=== PATIENT | female | born 1950 | race Caucasian/White ===

== ENCOUNTER 2017-01-27 00:16 | Inpatient (IN) | payer MEDICARE ==
[2017-01-27] MEDS ORDERED: Lasix 40 MG/4 ML ONE (00:23)
[2017-01-27] MEDS ORDERED: BABY ASPIRIN 81 MG CHEW PO ONE (00:25)
[2017-01-27] MEDS ORDERED: Lasix 40 MG/4 ML IV ONE (00:25)
[2017-01-27] MEDS ORDERED: ROCEPHIN 1 Gm-D5w 50 ml Bag** 1 G/50 ML IVPB IV STA (00:31)
[2017-01-27] MEDS ORDERED: Zithromax 500 MG/ 250 ML NaCl Premix 500 MG/250 ML IVPB IV STA (00:31)
[2017-01-27] MEDS ORDERED: Xopenex 1.25 MG/0.5 ML UD NEBULE IH ONE ×3 (00:31→01:06)
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
[2017-01-27] MEDS ORDERED: Sodium Chloride 0.9% 250 ML 250 ML IV ONE (00:35)
[2017-01-27 00:37] LABS: A-aADO2 582; ARTERIAL BLD GAS O2 SATURATION 96.6 % (95-100); ARTERIAL BLOOD GAS BASE EXCESS 3.9 (-2.0-2.0); ARTERIAL BLOOD GAS FIO2 100 %; ARTERIAL BLOOD GAS PO2 79 mmHg (75-100); ARTERIAL BLOOD GAS pH 7.44 (7.35-7.45)
[2017-01-27 00:38] LABS: ALLEN TEST OK? YES
[2017-01-27 00:40] LABS: BASOPHIL % 0.3 % (0.0-0.4); Eosinophil % 0.9 % (0.00-5.0); Granulocytes % 77.6 % (36.0-66.0); Lymphocytes % 12.4 % (24.0-44.0); Mean Cell Volume 93.4 fl (78-100); Mean Platelet Volume 9.2 fl (6-9.5); Monocytes % 8.8 % (0.0-12.0); Platelet Count 225 K/mm3 (150-450); Red Blood Count 3.66 M/mm3 (4.1-5.4); Red Cell Distribution Width 14.6 % (11.5-14.0); White Blood Count 9.6 K/mm3 (4.0-10.5)
[2017-01-27] MEDS: Sodium Chloride 0.9% 1000 ML 1,000 ML IV SCH ×2 (00:40→03:53)
[2017-01-27] MEDS ORDERED: BABY ASPIRIN 81 MG CHEW ONE (00:42)
[2017-01-27] MEDS ORDERED: ROCEPHIN 1 Gm-D5w 50 ml Bag** 1 G/50 ML IVPB IV ONE (00:42)
[2017-01-27] MEDS ORDERED: NITRO-BID 2% UD PACKETS TOP ONE (00:44)
[2017-01-27] MEDS ORDERED: NITRO-BID 2% UD PACKETS ONE (00:45)
[2017-01-27 00:52] LABS: INR 1.14 (0.8-3.0); PROTIME 12.9 SECONDS (9.95-12.35)
[2017-01-27 00:54] LABS: PTT 21.2 SECONDS (25.3-37.0)
[2017-01-27] MEDS ORDERED: Sodium Chloride 3 ML UD NEBULES IH ONE ×2 (00:58→01:06)
[2017-01-27 01:06] LABS: ALBUMIN 3.7 g/dL (3.4-5.0); ALKALINE PHOSPHATASE 109 U/L (46-116); ANION GAP 13.8 MEQ/L (5-15); BLOOD UREA NITROGEN 27 mg/dL (9-20); CHLORIDE 103 mEq/L (98-107); Glucose 190 MG/DL (70-110); LIPASE 71 U/L (73-393); MAGNESIUM 1.9 mg/dL (1.8-2.4); Potassium 3.8 mEq/L (3.5-5.1); SGOT/AST 18 U/L (15-37); SGPT/ALT 14 U/L (12-78); SODIUM 140 mEq/L (136-145); Total Protein 8.1 gm/dL (6.4-8.2)
[2017-01-27 01:10] LABS: ADD URINE CULTURE? NO (NO); Bilirubin NEGATIVE (NEGATIVE); Blood NEGATIVE Ery/ul (0-5); COMPLETE URINE MICROSCOPIC? NO; Collection Type CATH; Glucose NEGATIVE (NEGATIVE); Leukocyte Esterase NEGATIVE (NEGATIVE)
[2017-01-27] MEDS ORDERED: Zithromax 500 MG/ 250 ML NaCl Premix 500 MG/250 ML IVPB IV ONE (01:19)
[2017-01-27] MEDS ORDERED: PROVENTIL 2.5 MG/3 ML NEB IH ONE ×2 (03:52→03:56)
[2017-01-27] MEDS ORDERED: Sodium Chloride 0.9% 250 ML 250 ML IV SCH (04:00)
[2017-01-27] MEDS ORDERED: Sodium Chloride 0.9% 1000 ML 1,000 ML IV SCH (04:58)
[2017-01-27] MEDS ORDERED: PROVENTIL 2.5 MG/3 ML NEB IH PRN (04:58)
[2017-01-27] MEDS ORDERED: TYLENOL 325 MG PO PRN (04:58)
[2017-01-27] MEDS ORDERED: NovoLOG Insulin SQ PRN (04:58)
[2017-01-27] MEDS ORDERED: TORAdol 30 mg Injection IV PRN (04:58)
[2017-01-27] MEDS ORDERED: Phenergan 25 MG INJ IV PRN (04:58)
[2017-01-27] MEDS ORDERED: DUONEB 0.5-3 MG/3 ml Neb IH ONE (06:25)
[2017-01-27] MEDS: DUONEB 0.5-3 MG/3 ml Neb IH SCH ×2 (06:28→10:30)
[2017-01-27] MEDS ORDERED: TORAdol 30 mg Injection ONE (06:28)
[2017-01-27 06:50] LABS: A-aADO2 354; ALLEN TEST OK? YES; ARTERIAL BLD GAS O2 SATURATION 97.9 % (95-100); ARTERIAL BLOOD GAS BASE EXCESS 7.6 (-2.0-2.0); ARTERIAL BLOOD GAS FIO2 70 %; ARTERIAL BLOOD GAS PO2 98 mmHg (75-100); ARTERIAL BLOOD GAS pH 7.52 (7.35-7.45); BIPAP(E) 6; BIPAP(I) 12
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
[2017-01-27 08:17] VITALS: BP 119/49; O2SAT 99
--- NOTE | 2017-01-27 08:40 | XRAY ---
Indication: Respiratory distress. Elevated d-dimer. Multiple contiguous axial images obtained through the chest using 80 cc Isovue 370 contrast and PE protocol. Comparison: None There is adequate opacification of the pulmonary arteries. No filling defect or pulmonary embolus. Heart is borderline enlarged. No pericardial effusion. 1.8 x 3.0 cm subcarinal and 1.5 x 1.8 cm precarinal prominent lymph nodes. Examination of the lung parenchyma demonstrates diffuse bilateral multifocal airspace opacities and small bilateral effusions. There are also bilateral lower lobe consolidating opacities. Bony thorax intact with mild degenerative changes throughout the spine. Limited upper abdomen including adrenal glands are unremarkable. Impression: 1. Negative for pulmonary embolus. 2. Diffuse bilateral airspace disease, some appearing consolidating/organizing with bilateral effusions. 3. Prominent mediastinal lymph nodes presumed reactive. 4. Borderline cardiomegaly. Comment: Preliminary interpretation was made by [facility]. No critical discrepancy. CT DI 23.69
--- NOTE | 2017-01-27 08:44 | XRAY ---
Indication: Short of breath. Respiratory distress. Comparison: June 21, 2013. Portable chest demonstrates new diffuse bilateral interstitial alveolar opacities with right infrahilar consolidation and small bibasilar effusions. The heart is borderline enlarged. Bony thorax intact again with osteopenia and degenerative changes.
--- NOTE | 2017-01-27 08:46 | XRAY ---
Indication: CHF. Pneumonia. Comparison: Taken earlier in the day. Portable chest unchanged again demonstrating diffuse bilateral interstitial alveolar opacities with right infrahilar consolidation and small bibasilar effusions. The heart remains borderline enlarged. No new findings.
[2017-01-27] MEDS ORDERED: hydroDIURIL 25 MG PO SCH (10:00)
[2017-01-27] MEDS ORDERED: NORVASC 5 MG PO SCH (10:00)
[2017-01-27] MEDS ORDERED: COREG 12.5 MG PO SCH (10:00)
[2017-01-27] MEDS ORDERED: Zestril 20 MG PO SCH (10:00)
[2017-01-27] MEDS ORDERED: ECOTRIN 81 MG PO SCH (10:00)
[2017-01-27] MEDS ORDERED: LISINOPRIL PO SCH (10:00)
[2017-01-27] MEDS ORDERED: Klor Con 10 MEQ PO SCH (10:00)
[2017-01-27] MEDS ORDERED: NON-FORMULARY ITEM (Aspirin [Aspirin] 81 MG) PO SCH (10:00)
[2017-01-27] MEDS ORDERED: Lasix 20 MG/2 ML IV SCH (10:00)
[2017-01-27] MEDS ORDERED: HCTZ PO SCH (10:00)
[2017-01-27 10:35] VITALS: PULSE 90
[2017-01-27] MEDS ORDERED: ROCEPHIN 1 Gm-D5w 50 ml Bag** 1 G/50 ML IVPB IV SCH (22:00)
[2017-01-27] MEDS ORDERED: Zithromax 500 MG/ 250 ML NaCl Premix 500 MG/250 ML IVPB IV SCH (22:00)
--- NOTE | 2017-01-31 09:35 | ECHO ---
DATE OF PROCEDURE: 01/27/2017 PROCEDURE: 2D echocardiogram and Doppler. INDICATION: Congestive heart failure. MEASUREMENTS: Wall thickness, chamber sizes, aortic root size appear to be within normal limits. DESCRIPTION OF PROCEDURE: Overall a technically difficult study. Left ventricular ejection fraction appears grossly within normal limits. There are no wall motion abnormalities in the area seen. There is no pericardial effusion or intracardiac masses. Aortic valve is grossly normal. There is mild mitral regurgitation. Mild tricuspid regurgitation with no evidence of mitral stenosis nor aortic stenosis. IMPRESSION: 1) Technically difficult study. 2) Preserved left ventricular systolic function with grossly normal ejection fraction. 3) No evidence of pericardial effusion. 4) Mild mitral regurgitation and tricuspid regurgitation.
== END 2017-01-27 12:25 | disposition home or self-care (01) | DRG 291 ==
LOC: ED 00:16 → ICU 04:20 → OBSVTOIN 07:48
PROVIDERS: ADMIT Family Medicine; ATTEND Family Medicine
DX: I50.31 Acute diastolic (congestive) heart failure (principal); J18.9 Pneumonia, unspecified organism; I10 Essential (primary) hypertension; E11.9 Type 2 diabetes mellitus without complications
CPT/HCPCS: 36000; 36415; 36600; 51702; 71010; 71260; 80053; 80307; 81002; 82150; 82375; 82803; 82962; 83036; 83690; 83735; 83880; 84484; 85025; 85379; 85610; 85730; 87040; 93005; 93041; 93306; 94002; 94640; 96360; 96365; 96367; 96374; 99285; J0456; J0696; J1885; J1940; P9612; A9270-GY

== ENCOUNTER 2019-02-01 14:38 | Emergency (ER) | payer MEDICARE ==
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
[2019-02-01 17:12] VITALS: BP 160/80; PULSE 78; O2SAT 94
--- NOTE | 2019-02-01 21:34 | XRAY ---
Indication: Pain following fall. Comparison: None 3 views of the left wrist demonstrates mildly displaced distal ulnar shaft oblique fracture. Elsewhere osteopenia, radiocarpal joint space narrowing, 1st metacarpal multangular degenerative changes, and radial artery calcifications. No other bony, articular, or soft tissue abnormalities.
--- NOTE | 2019-02-01 21:37 | XRAY ---
Indication: Pain following fall. Comparison: None Frontal/lateral thoracic spine demonstrates 12 typical rib-bearing thoracic vertebral segments in normal alignment with osteopenia, multilevel bridging endplate osteophytes, and scattered vascular calcifications. No other bony, articular, or soft tissue abnormalities.
--- NOTE | 2019-02-01 21:37 | XRAY ---
Indication: Pain following fall. Comparison: None 3 views of the right shoulder demonstrates osteopenia and mild AC/glenohumeral degenerative arthropathy. No other bony, articular, or soft tissue abnormalities.
--- NOTE | 2019-02-01 21:41 | XRAY ---
Indication: Posterior head injury following fall. Multiple contiguous axial images obtained through the head without contrast. Comparison: June 21, 2013. Again age-appropriate global atrophy and moderate periventricular degenerative ischemia bilaterally. No acute intracranial hemorrhage, abnormal extra-axial fluid collection, or mass effect. Fourth ventricle is midline without hydrocephalus. Bony calvarium intact. Visualized paranasal sinuses and mastoid air cells are clear. Impression: Nonacute senile brain. Comment: Preliminary interpretation was made by [facility]. No discrepancy. CTDI 48.31
== END 2019-02-01 17:12 | disposition home or self-care (01) ==
LOC: ED 14:38
DX: S52.602A Unspecified fracture of lower end of left ulna, initial encounter for closed fracture (principal); W01.198A Fall on same level from slipping, tripping and stumbling with subsequent striking against other object, initial encounter; Y92.830 Public park as the place of occurrence of the external cause
CPT/HCPCS: 29126; 70450; 72072; 73030; 73110; 99284

== ENCOUNTER 2020-11-16 09:37 | Observation (INO) | payer MEDICARE ==
[2020-11-16] MEDS ORDERED: Sodium Chloride 0.9% 1000 ML 1,000 ML IV SCH (10:15)
[2020-11-16 10:52] LABS: Absolute Neutrophil Ct (ANC) 4.15 (1.4-6.9); BASOPHIL % 0.3 % (0.0-0.4); Basophil (Absolute #) 0.02 (0-0.4); Eosinophil % 0.9 % (0.00-5.0); Eosinophil (Absolute #) 0.06 (0-0.5); Hematocrit 37.5 % (35-47); Hemoglobin 12.1 gm/dl (12.0-16.0); Lymphocyte (Absolute #) 1.44 (1.0-4.6); Lymphocytes % 22.7 % (24.0-44.0); Mean Cell Volume 98.9 fl (78-100); Mean Corpuscular Hemoglobin 31.9 pg (26-32); Mean Corpuscular Hgb Concent. 32.3 g/dl (32-36); Mean Platelet Volume 8.8 fl (7.5-11.0); Monocyte (Absolute #) 0.67 (0.0-1.3); Monocytes % 10.6 % (0.0-12.0); Neutrophil % 65.5 % (36.0-66.0); Platelet Count 223 K/mm3 (150-450); Red Blood Count 3.79 M/mm3 (4.1-5.4); Red Cell Distribution Width 14.2 % (11.5-14.0); White Blood Count 6.3 K/mm3 (4.0-10.5)
[2020-11-16 11:21] LABS: ALBUMIN 4.4 g/dL (3.5-5.0); ALKALINE PHOSPHATASE 98 U/L (38-126); BLOOD UREA NITROGEN 21 mg/dL (7-17); CHLORIDE 99 mmol/L (98-107); Calcium 10.1 mg/dL (8.4-10.2); Carbon Dioxide 32 mmol/L (22-30); Creatinine 1 0.82 mg/dL (0.52-1.04); EST GLOMERULAR FILTRATION RATE > 60.0 ML/MIN; Glucose 124 mg/dL (74-106); SGOT/AST 29 U/L (14-36); SGPT/ALT 28 U/L (0-35); SODIUM 139 mmol/L (137-145); Total Protein 8.4 g/dL (6.3-8.2)
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
[2020-11-16 13:19] LABS: INFLUENZA A NEGATIVE (NEGATIVE); INFLUENZA B NEGATIVE (NEGATIVE); RESPIRATORY SYNCTIAL VIRUS NEGATIVE (Negative)
[2020-11-16] MEDS: VANCOMYCIN 1 GRAM/200 ML BAG 1 GM/200 ML PIGGYBACK IV SCH (13:56)
[2020-11-16] MEDS: Sodium Chloride 0.9% 1000 ML 1,000 ML IV SCH (14:23)
[2020-11-16] MEDS ORDERED: HUMALOG SQ ONE (16:30)
[2020-11-16] MEDS ORDERED: Lasix 40 MG PO ONE (17:00)
[2020-11-16] MEDS ORDERED: MOTRIN 600 MG PO PRN (20:18)
[2020-11-16] MEDS: NORCO 5/325 MG PO PRN (20:32)
[2020-11-16] MEDS ORDERED: COREG 12.5 MG PO ONE (22:00)
[2020-11-16] MEDS ORDERED: Klor Con 10 MEQ PO ONE (22:00)
[2020-11-16] MEDS: Lantus Insulin SQ SCH (22:47)
[2020-11-16] MEDS: VANCOMYCIN 1.25 GM/250 ML BAG 1.25 GM/250 ML PIGGYBACK IV SCH (22:52)
[2020-11-17] MEDS: VANCOMYCIN 1 GRAM/200 ML BAG 1 GM/200 ML PIGGYBACK IV SCH (03:20)
[2020-11-17 05:02] LABS: Absolute Neutrophil Ct (ANC) 4.14 (1.4-6.9); BASOPHIL % 0.2 % (0.0-0.4); Basophil (Absolute #) 0.01 (0-0.4); Eosinophil % 0.9 % (0.00-5.0); Eosinophil (Absolute #) 0.06 (0-0.5); Hematocrit 34.9 % (35-47); Hemoglobin 11.1 gm/dl (12.0-16.0); Lymphocyte (Absolute #) 1.44 (1.0-4.6); Lymphocytes % 22.4 % (24.0-44.0); Mean Cell Volume 100.9 fl (78-100); Mean Corpuscular Hemoglobin 32.1 pg (26-32); Mean Corpuscular Hgb Concent. 31.8 g/dl (32-36); Monocyte (Absolute #) 0.79 (0.0-1.3); Monocytes % 12.3 % (0.0-12.0); Neutrophil % 64.2 % (36.0-66.0); Platelet Count 198 K/mm3 (150-450); Red Blood Count 3.46 M/mm3 (4.1-5.4); Red Cell Distribution Width 14.2 % (11.5-14.0); White Blood Count 6.4 K/mm3 (4.0-10.5)
[2020-11-17] MEDS: Sodium Chloride 0.9% 1000 ML 1,000 ML IV SCH (05:26)
[2020-11-17 05:36] LABS: ALBUMIN 3.6 g/dL (3.5-5.0); ALKALINE PHOSPHATASE 77 U/L (38-126); ANION GAP 11.1 MEQ/L (5-15); BLOOD UREA NITROGEN 21 mg/dL (7-17); CHLORIDE 103 mmol/L (98-107); Calcium 8.4 mg/dL (8.4-10.2); Carbon Dioxide 26 mmol/L (22-30); EST GLOMERULAR FILTRATION RATE > 60.0 ML/MIN; Glucose 138 mg/dL (74-106); Potassium 3.9 mmol/L (3.5-5.1); SGOT/AST 25 U/L (14-36); SGPT/ALT 20 U/L (0-35); SODIUM 136 mmol/L (137-145); Total Protein 7.1 g/dL (6.3-8.2)
[2020-11-17] MEDS ORDERED: MEDICATION INTERVENTION MC SCH (07:30)
[2020-11-17] MEDS ORDERED: INSULIN ASPART SQ SCH (07:30)
[2020-11-17] MEDS: HUMALOG SQ SCH ×3 (08:17→16:59)
--- NOTE | 2020-11-17 08:43 | PCM.NOTE ---
Date and Time: 11/17/20 0840 Subjective Assessment: patient reports persistent swelling, redness and drainage from right lower leg. no other complaints. redness and pain began 2 days prior to arrival, patient has poor mobility Objective Exam General Appearance: no apparent distress, obese Neurologic Exam: alert, oriented x 3 Wound Assessment: Skin/Wound Assessment Wound/Incision Assessment Start: 11/16/20 16:00 Text: Status: Active Freq: Q6H Protocol: Document 11/17/20 02:00 LB (Rec: 11/17/20 03:17 LB [id number]) Wound/Incision Assessment Left Lower Posterior Calf Wound Assessment Shift Assessment Wound Type scabbed area Wound Stage Non Pressure Wound Drainage Amount None General Appearance Open to air,Clean/Dry Surrounding Tissue [place],Bright Red,Edematous Comment barrier cream applied Right Lower Posterior Calf Wound Assessment Shift Assessment Wound Type cellulites Drainage Amount Moderate Drainage Description Serous Drainage Odor None/Absent General Appearance Open to air,Reddened,Draining Surrounding Tissue Reg[place],Bright Red,Edematous Comment barrier cream applied Wound Photo Photo Taken No Respiratory Exam: normal breath sounds, lungs clear, No respiratory distress Cardiovascular Exam: regular rate/rhythm, normal heart sounds Gastrointestinal/Abdomen Exam: soft, No tenderness, No mass Extremity Exam: swelling, tenderness (weeping from posterior RLE, redness, warmth, tenderness) OBJECTIVE DATA Vital Signs: Vital Signs - 24 hr Temp Pulse Resp BP Pulse Ox 11/17/20 06:37 98.1 F 88 16 128/51 92 L 11/17/20 03:52 97.5 F 84 18 108/59 92 L 11/16/20 23:49 98.0 F 94 H 19 120/56 94 L 11/16/20 19:47 97.0 F 101 H 19 133/63 94 L 11/16/20 14:37 97.9 F 100 H 20 142/73 96 11/16/20 14:07 99 H 139/72 92 L 11/16/20 13:16 95 H 125/65 98 11/16/20 12:14 96 11/16/20 12:08 85 134/54 96 11/16/20 11:20 85 166/91 98 11/16/20 09:41 97.7 F 92 H 186/94 97 Pain Assessment - Last Documented Pain Intensity 0 Pain Scale Used 0-10 Pain Scale Intake and Output: Intake & Output 11/14/20 11/15/20 11/16/20 11/17/20 11:59 11:59 11:59 11:59 Intake Total 1754 Output Total 1700 Balance 54 Weight 124.738 kg 124.1 kg Lab Results: Lab Results-Last 24 Hours 11/16/20 11/16/20 11/16/20 Range/Units 10:04 10:40 10:40 WBC 6.3 (4.0-10.5) K/mm3 RBC 3.79 L (4.1-5.4) M/mm3 Hgb 12.1 (12.0-16.0) gm/dl Hct 37.5 (35-47) % MCV 98.9 (78-100) fl MCH 31.9 (26-32) pg MCHC 32.3 (32-36) g/dl RDW 14.2 H (11.5-14.0) % Plt Count 223 (150-450) K/mm3 MPV 8.8 (7.5-11.0) fl Gran % 65.5 (36.0-66.0) % Eos # (Auto) 0.06 (0-0.5) Absolute Lymphs (auto) 1.44 (1.0-4.6) Absolute Monos (auto) 0.67 (0.0-1.3) Lymphocytes % 22.7 L (24.0-44.0) % Monocytes % 10.6 (0.0-12.0) % Eosinophils % 0.9 (0.00-5.0) % Basophils % 0.3 (0.0-0.4) % Absolute Granulocytes 4.15 (1.4-6.9) Basophils # 0.02 (0-0.4) ESR (0-20) mm/hr Sodium 139 (137-145) mmol/L Potassium 4.0 (3.5-5.1) mmol/L Chloride 99 (98-107) mmol/L Carbon Dioxide 32 H (22-30) mmol/L Anion Gap 11.0 (5-15) MEQ/L BUN 21 H (7-17) mg/dL Creatinine 0.82 (0.52-1.04) mg/dL Estimated GFR > 60.0 ML/MIN Glucose 124 H (74-106) mg/dL POC Glucometer (74 to 106) mg/dL Lactic Acid 1.4 (0.4-2.0) Calcium 10.1 (8.4-10.2) mg/dL Total Bilirubin 0.90 (0.2-1.3) mg/dL AST 29 (14-36) U/L ALT 28 (0-35) U/L Alkaline Phosphatase 98 (38-126) U/L Serum Total Protein 8.4 H (6.3-8.2) g/dL Albumin 4.4 (3.5-5.0) g/dL Procalcitonin 0.048 (0.030-0.080) ng/mL Influenza Type A Ag (NEGATIVE) Influenza Type B Ag (NEGATIVE) RSV (PCR) (Negative) SARS-CoV-2 (PCR) (NEGATIVE) 11/16/20 11/16/20 11/16/20 Range/Units 10:40 12:38 15:25 WBC (4.0-10.5) K/mm3 RBC (4.1-5.4) M/mm3 Hgb (12.0-16.0) gm/dl Hct (35-47) % MCV (78-100) fl MCH (26-32) pg MCHC (32-36) g/dl RDW (11.5-14.0) % Plt Count (150-450) K/mm3 MPV (7.5-11.0) fl Gran % (36.0-66.0) % Eos # (Auto) (0-0.5) Absolute Lymphs (auto) (1.0-4.6) Absolute Monos (auto) (0.0-1.3) Lymphocytes % (24.0-44.0) % Monocytes % (0.0-12.0) % Eosinophils % (0.00-5.0) % Basophils % (0.0-0.4) % Absolute Granulocytes (1.4-6.9) Basophils # (0-0.4) ESR 74 H (0-20) mm/hr Sodium (137-145) mmol/L Potassium (3.5-5.1) mmol/L Chloride (98-107) mmol/L Carbon Dioxide (22-30) mmol/L Anion Gap (5-15) MEQ/L BUN (7-17) mg/dL Creatinine (0.52-1.04) mg/dL Estimated GFR ML/MIN Glucose (74-106) mg/dL POC Glucometer 111 H (74 to 106) mg/dL Lactic Acid (0.4-2.0) Calcium (8.4-10.2) mg/dL Total Bilirubin (0.2-1.3) mg/dL AST (14-36) U/L ALT (0-35) U/L Alkaline Phosphatase (38-126) U/L Serum Total Protein (6.3-8.2) g/dL Albumin (3.5-5.0) g/dL Procalcitonin (0.030-0.080) ng/mL Influenza Type A Ag NEGATIVE (NEGATIVE) Influenza Type B Ag NEGATIVE (NEGATIVE) RSV (PCR) NEGATIVE (Negative) SARS-CoV-2 (PCR) NEGATIVE (NEGATIVE) 11/16/20 11/17/20 11/17/20 Range/Units 20:49 04:35 04:35 WBC 6.4 (4.0-10.5) K/mm3 RBC 3.46 L (4.1-5.4) M/mm3 Hgb 11.1 L (12.0-16.0) gm/dl Hct 34.9 L (35-47) % MCV 100.9 H (78-100) fl MCH 32.1 H (26-32) pg MCHC 31.8 L (32-36) g/dl RDW 14.2 H (11.5-14.0) % Plt Count 198 (150-450) K/mm3 MPV 9.0 (7.5-11.0) fl Gran % 64.2 (36.0-66.0) % Eos # (Auto) 0.06 (0-0.5) Absolute Lymphs (auto) 1.44 (1.0-4.6) Absolute Monos (auto) 0.79 (0.0-1.3) Lymphocytes % 22.4 L (24.0-44.0) % Monocytes % 12.3 H (0.0-12.0) % Eosinophils % 0.9 (0.00-5.0) % Basophils % 0.2 (0.0-0.4) % Absolute Granulocytes 4.14 (1.4-6.9) Basophils # 0.01 (0-0.4) ESR (0-20) mm/hr Sodium 136 L (137-145) mmol/L Potassium 3.9 (3.5-5.1) mmol/L Chloride 103 (98-107) mmol/L Carbon Dioxide 26 (22-30) mmol/L Anion Gap 11.1 (5-15) MEQ/L BUN 21 H (7-17) mg/dL Creatinine 0.80 (0.52-1.04) mg/dL Estimated GFR > 60.0 ML/MIN Glucose 138 H (74-106) mg/dL POC Glucometer 148 H (74 to 106) mg/dL Lactic Acid (0.4-2.0) Calcium 8.4 D (8.4-10.2) mg/dL Total Bilirubin 0.80 (0.2-1.3) mg/dL AST 25 (14-36) U/L ALT 20 (0-35) U/L Alkaline Phosphatase 77 (38-126) U/L Serum Total Protein 7.1 (6.3-8.2) g/dL Albumin 3.6 (3.5-5.0) g/dL Procalcitonin (0.030-0.080) ng/mL Influenza Type A Ag (NEGATIVE) Influenza Type B Ag (NEGATIVE) RSV (PCR) (Negative) SARS-CoV-2 (PCR) (NEGATIVE) 11/17/20 Range/Units 06:33 WBC (4.0-10.5) K/mm3 RBC (4.1-5.4) M/mm3 Hgb (12.0-16.0) gm/dl Hct (35-47) % MCV (78-100) fl MCH (26-32) pg MCHC (32-36) g/dl RDW (11.5-14.0) % Plt Count (150-450) K/mm3 MPV (7.5-11.0) fl Gran % (36.0-66.0) % Eos # (Auto) (0-0.5) Absolute Lymphs (auto) (1.0-4.6) Absolute Monos (auto) (0.0-1.3) Lymphocytes % (24.0-44.0) % Monocytes % (0.0-12.0) % Eosinophils % (0.00-5.0) % Basophils % (0.0-0.4) % Absolute Granulocytes (1.4-6.9) Basophils # (0-0.4) ESR (0-20) mm/hr Sodium (137-145) mmol/L Potassium (3.5-5.1) mmol/L Chloride (98-107) mmol/L Carbon Dioxide (22-30) mmol/L Anion Gap (5-15) MEQ/L BUN (7-17) mg/dL Creatinine (0.52-1.04) mg/dL Estimated GFR ML/MIN Glucose (74-106) mg/dL POC Glucometer 122 H (74 to 106) mg/dL Lactic Acid (0.4-2.0) Calcium (8.4-10.2) mg/dL Total Bilirubin (0.2-1.3) mg/dL AST (14-36) U/L ALT (0-35) U/L Alkaline Phosphatase (38-126) U/L Serum Total Protein (6.3-8.2) g/dL Albumin (3.5-5.0) g/dL Procalcitonin (0.030-0.080) ng/mL Influenza Type A Ag (NEGATIVE) Influenza Type B Ag (NEGATIVE) RSV (PCR) (Negative) SARS-CoV-2 (PCR) (NEGATIVE) Multi-Disciplinary Progress Notes: Multi-Disciplinary Progress Notes 11/16/20 15:10 Pharmacy Note by Rosas Finch Pharmacokinetic dosing service Date: 11/16/2020 Time: 1500 Objective: Patient: Candelaria Larsen Floor: 102 Age: 70 yo Serum creatinine: 0.82 mg/dL Height: 64 Inches Weight (kg): 125 Diagnosis: Cellulitis - Legs Relevant medical/social history: Cultures and sensitivities: Previous MRSA Other labs: 0.82 SR CR WBC 6.8 Assessment: IBW (kg): 54.70 Dosing wt(kg): 125 Estimated Creatinine clearance (ml/min): 55.1 CRCL method: Cockcroft and Gault using ibw(default). Drug selected: Vancomycin Loading dose (mg): received 1000 mg from ED order Vd (liters): 93.8 (factor used: 0.75 L/kg) Dinesh (hr-1): 0.050 Half life (hrs): 13.86 Recommended dose: 1250 mg Interval: 12 hrs Infusion time (hrs): 2.0 Predicted peak (mcg/mL): 28.1 Predicted trough (mcg/mL): 17.04 Total body weight is being used for vancomycin dosing. Renal function is stable [XXX ] /unstable [ ] Recommendations: Give Vancomycin 1250 mg q 12 hrs with an expected Cpeak of 28.1 mcg/ml and an expected Ctrough of 17.04 mcg/ml Thank you for the consult, will continue to follow. Signature: Blaine Finch Initialized on 11/16/20 15:10 - END OF NOTE Assessment/Plan (1) Cellulitis and abscess of right leg Current Visit: Yes Status: Acute Assessment & Plan: on vanc, wound culture prelim gram negative ID pending, will add levaquin for gram negative coverage, will adjust coverage when culture complete. check venous doppler as well, with dm type 2 might be a polymicrobial infection Code(s): L03.115 - CELLULITIS OF RIGHT LOWER LIMB; L02.415 - CUTANEOUS ABSCESS OF RIGHT LOWER LIMB (2) Diabetes mellitus Current Visit: Yes Status: Acute Code(s): E11.9 - TYPE 2 DIABETES MELLITUS WITHOUT COMPLICATIONS
[2020-11-17] MEDS: Levofloxacin 500MG/100ML D5W 500 MG/100 ML BAG IV SCH (09:52)
[2020-11-17] MEDS ORDERED: NON-FORMULARY ITEM (Aspirin [Aspirin] 81 MG) PO SCH ×2 (10:00)
[2020-11-17] MEDS ORDERED: NON-FORMULARY ITEM (Diclofenac Sodium [Diclofenac Sodium] 75 MG) PO SCH (10:00)
[2020-11-17] MEDS: VANCOMYCIN 1.25 GM/250 ML BAG 1.25 GM/250 ML PIGGYBACK IV SCH ×2 (10:40→22:52)
[2020-11-17] MEDS: COREG 12.5 MG PO SCH ×2 (10:40→22:52)
[2020-11-17] MEDS: Cozaar 50 MG PO SCH (10:40)
[2020-11-17] MEDS: ECOTRIN 81 MG PO SCH (10:40)
[2020-11-17] MEDS: AMARYL 4 MG PO SCH (10:41)
[2020-11-17] MEDS: PLAVIX 75 MG Tablet PO SCH (10:41)
[2020-11-17] MEDS: ZOCOR 20MG PO SCH (10:41)
[2020-11-17] MEDS: Lasix 40 MG PO SCH ×2 (10:41→16:58)
[2020-11-17] MEDS: Klor Con 10 MEQ PO SCH ×2 (10:41→22:50)
--- NOTE | 2020-11-17 10:48 | XRAY ---
Indication: Right leg "swollen and leaking." Two-dimensional sonogram and color Doppler imaging of the major venous vessels of the right leg was performed. Comparison: None Chemical Analytical Sampler notes difficult to compress veins due to body habitus, leg tightness, and patient intolerance. No obvious thrombus seen in the deep venous vessels of the right leg including greater saphenous vein. Veins demonstrate normal compressibility with without augmentation. Impression: Limited right leg venous sonogram as detailed. No obvious DVT.
[2020-11-17] MEDS: NORCO 5/325 MG PO PRN ×2 (13:14→22:51)
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
[2020-11-17] MEDS ORDERED: Lantus Insulin SQ SCH (22:00)
[2020-11-17] MEDS: Lantus Insulin SQ SCH (22:52)
[2020-11-18 05:16] LABS: Absolute Neutrophil Ct (ANC) 3.93 (1.4-6.9); BASOPHIL % 0.2 % (0.0-0.4); Basophil (Absolute #) 0.01 (0-0.4); Eosinophil % 1.6 % (0.00-5.0); Eosinophil (Absolute #) 0.09 (0-0.5); Hematocrit 34.3 % (35-47); Hemoglobin 11.1 gm/dl (12.0-16.0); Lymphocyte (Absolute #) 1.03 (1.0-4.6); Lymphocytes % 18.1 % (24.0-44.0); Mean Corpuscular Hemoglobin 32.4 pg (26-32); Mean Corpuscular Hgb Concent. 32.4 g/dl (32-36); Mean Platelet Volume 8.9 fl (7.5-11.0); Monocyte (Absolute #) 0.64 (0.0-1.3); Monocytes % 11.2 % (0.0-12.0); Neutrophil % 68.9 % (36.0-66.0); Platelet Count 191 K/mm3 (150-450); Red Blood Count 3.43 M/mm3 (4.1-5.4); Red Cell Distribution Width 14.4 % (11.5-14.0); White Blood Count 5.7 K/mm3 (4.0-10.5)
[2020-11-18] MEDS: Sodium Chloride 0.9% 1000 ML 1,000 ML IV SCH (05:16)
[2020-11-18 05:35] LABS: ANION GAP 9.4 MEQ/L (5-15); BLOOD UREA NITROGEN 23 mg/dL (7-17); CHLORIDE 102 mmol/L (98-107); Calcium 8.7 mg/dL (8.4-10.2); Carbon Dioxide 25 mmol/L (22-30); Creatinine 1 0.79 mg/dL (0.52-1.04); EST GLOMERULAR FILTRATION RATE > 60.0 ML/MIN; Glucose 186 mg/dL (74-106); SODIUM 133 mmol/L (137-145)
[2020-11-18] MEDS ORDERED: NON-FORMULARY ITEM (Empagliflozin [Jardiance] 25 MG) PO SCH (06:00)
[2020-11-18] MEDS: HUMALOG SQ SCH ×3 (08:08→17:18)
[2020-11-18] MEDS: NORCO 5/325 MG PO PRN ×3 (08:08→21:35)
--- NOTE | 2020-11-18 08:34 | PCM.NOTE ---
Date and Time: 11/18/20830 Subjective Assessment: She thinks the leg isn't looking much better, but there is less pain. Libby po. Having regular BMs. - Review of Systems Constitutional: No Fever Skin: Cellulitis Objective Exam General Appearance: no apparent distress, obese Neurologic Exam: alert, cooperative Skin Exam: other (RLE with mild erythema on anterior distal leg, with increased erythema posteriorly along with several small lesions with serosanguinous drainage. Leg is generally edematous.) Wound Assessment: Skin/Wound Assessment Wound/Incision Assessment Start: 11/16/20 16:00 Text: Status: Active Freq: Q6H Protocol: Document 11/18/20 02:00 ST (Rec: 11/18/20 02:11 ST [id number]) Wound/Incision Assessment Left Lower Posterior Calf Wound Assessment Shift Assessment Wound Type scabbed area Wound Stage Non Pressure Wound Drainage Amount None General Appearance Open to air,Clean/Dry Surrounding Tissue [place],Bright Red,Edematous Comment barrier cream applied. Right Lower Posterior Calf Wound Assessment Shift Assessment Wound Type cellulitis Drainage Amount Moderate Drainage Description Serous Drainage Odor None/Absent General Appearance Open to air,Reddened,Draining Surrounding Tissue [place],Bright Red,Edematous Comment barrier cream applied Wound Photo Photo Taken No Ears, Nose, Throat Exam: moist mucous membranes Neck Exam: normal inspection Respiratory Exam: normal breath sounds, lungs clear, No crackles/rales, No rhonchi, No wheezing Cardiovascular Exam: regular rate/rhythm, normal heart sounds, No murmur Back Exam: normal inspection, No rash OBJECTIVE DATA Vital Signs: Vital Signs - 24 hr Temp Pulse Resp BP Pulse Ox 11/18/20 07:38 98.6 F 77 16 117/55 94 L 11/18/20 02:46 98.8 F 92 H 20 126/60 97 11/17/20 23:43 98.9 F 95 H 18 136/59 95 11/17/20 19:40 97.9 F 79 20 122/73 97 11/17/20 16:00 98.0 F 66 16 100/48 96 11/17/20 11:24 98.0 F 76 16 129/58 95 Pain Assessment - Last Documented Pain Intensity 7 Pain Scale Used 0-10 Pain Scale Intake and Output: Intake & Output 11/15/20 11/16/20 11/17/20 11/18/20 11:59 11:59 11:59 11:59 Intake Total 5042 0195 Output Total 1166 7580 Balance -66 509 Weight 124.738 kg 124.1 kg Lab Results: Lab Results-Last 24 Hours 11/17/20 11/17/20 11/17/20 Range/Units 04:45 16:10 20:39 WBC (4.0-10.5) K/mm3 RBC (4.1-5.4) M/mm3 Hgb (12.0-16.0) gm/dl Hct (35-47) % MCV (78-100) fl MCH (26-32) pg MCHC (32-36) g/dl RDW (11.5-14.0) % Plt Count (150-450) K/mm3 MPV (7.5-11.0) fl Gran % (36.0-66.0) % Eos # (Auto) (0-0.5) Absolute Lymphs (auto) (1.0-4.6) Absolute Monos (auto) (0.0-1.3) Lymphocytes % (24.0-44.0) % Monocytes % (0.0-12.0) % Eosinophils % (0.00-5.0) % Basophils % (0.0-0.4) % Absolute Granulocytes (1.4-6.9) Basophils # (0-0.4) Sodium (137-145) mmol/L Potassium (3.5-5.1) mmol/L Chloride (98-107) mmol/L Carbon Dioxide (22-30) mmol/L Anion Gap (5-15) MEQ/L BUN (7-17) mg/dL Creatinine (0.52-1.04) mg/dL Estimated GFR ML/MIN Glucose (74-106) mg/dL POC Glucometer 203 H 188 H (74 to 106) mg/dL Hemoglobin A1c 8.55 H (4.5-6.0) % Calcium (8.4-10.2) mg/dL 11/18/20 11/18/20 11/18/20 Range/Units 05:10 05:10 07:26 WBC 5.7 (4.0-10.5) K/mm3 RBC 3.43 L (4.1-5.4) M/mm3 Hgb 11.1 L (12.0-16.0) gm/dl Hct 34.3 L (35-47) % MCV 100.0 (78-100) fl MCH 32.4 H (26-32) pg MCHC 32.4 (32-36) g/dl RDW 14.4 H (11.5-14.0) % Plt Count 191 (150-450) K/mm3 MPV 8.9 (7.5-11.0) fl Gran % 68.9 H (36.0-66.0) % Eos # (Auto) 0.09 (0-0.5) Absolute Lymphs (auto) 1.03 (1.0-4.6) Absolute Monos (auto) 0.64 (0.0-1.3) Lymphocytes % 18.1 L (24.0-44.0) % Monocytes % 11.2 (0.0-12.0) % Eosinophils % 1.6 (0.00-5.0) % Basophils % 0.2 (0.0-0.4) % Absolute Granulocytes 3.93 (1.4-6.9) Basophils # 0.01 (0-0.4) Sodium 133 L (137-145) mmol/L Potassium 4.0 (3.5-5.1) mmol/L Chloride 102 (98-107) mmol/L Carbon Dioxide 25 (22-30) mmol/L Anion Gap 9.4 (5-15) MEQ/L BUN 23 H (7-17) mg/dL Creatinine 0.79 (0.52-1.04) mg/dL Estimated GFR > 60.0 ML/MIN Glucose 186 H (74-106) mg/dL POC Glucometer 166 H (74 to 106) mg/dL Hemoglobin A1c (4.5-6.0) % Calcium 8.7 (8.4-10.2) mg/dL Radiology Exams: Radiology Procedures Category Date Time Status VENOUS UNILAT/LIMITED EXTREMIT [US] Routine Exams 11/17/20 10:18 Completed Assessment/Plan (1) Cellulitis and abscess of right leg Current Visit: Yes Status: Acute Assessment & Plan: On Day #3 vancomycin and Day #2 levaquin, both IV. She is having some improvement as evidenced by less pain in the leg. Continue current therapy. Code(s): L03.115 - CELLULITIS OF RIGHT LOWER LIMB; L02.415 - CUTANEOUS ABSCESS OF RIGHT LOWER LIMB (2) Diabetes mellitus Current Visit: Yes Status: Acute Qualifiers: Diabetes mellitus type: type 2 Diabetes mellitus halfway insulin use: without halfway use Diabetes mellitus complication status: with skin complications Diabetes mellitus complication detail: with other skin complication Qualified Code(s): E11.628 - Type 2 diabetes mellitus with other skin complications Assessment & Plan: A1c was 8.55 Code(s): E11.9 - TYPE 2 DIABETES MELLITUS WITHOUT COMPLICATIONS
[2020-11-18] MEDS ORDERED: TROUGH DRUG LEVELS IJ ONE (09:30)
[2020-11-18] MEDS: ECOTRIN 81 MG PO SCH (10:04)
[2020-11-18] MEDS: ZOCOR 20MG PO SCH (10:04)
[2020-11-18] MEDS: AMARYL 4 MG PO SCH (10:04)
[2020-11-18] MEDS: COREG 12.5 MG PO SCH ×2 (10:05→21:34)
[2020-11-18] MEDS: Lasix 40 MG PO SCH ×2 (10:05→17:18)
[2020-11-18] MEDS: Cozaar 50 MG PO SCH (10:05)
[2020-11-18] MEDS: Klor Con 10 MEQ PO SCH ×2 (10:05→21:35)
[2020-11-18] MEDS: Levofloxacin 500MG/100ML D5W 500 MG/100 ML BAG IV SCH (10:05)
[2020-11-18] MEDS: PLAVIX 75 MG Tablet PO SCH (10:05)
[2020-11-18] MEDS: VANCOMYCIN 1.25 GM/250 ML BAG 1.25 GM/250 ML PIGGYBACK IV SCH ×2 (11:22→21:40)
[2020-11-18] MEDS: Lantus Insulin SQ SCH (21:35)
[2020-11-19] MEDS: Sodium Chloride 0.9% 1000 ML 1,000 ML IV SCH (04:32)
[2020-11-19] MEDS: HUMALOG SQ SCH ×3 (08:48→17:02)
[2020-11-19] MEDS ORDERED: DULCOLAX 5 MG PO PRN (09:38)
--- NOTE | 2020-11-19 09:38 | PCM.NOTE ---
Date and Time: 11/19/20 0936 Subjective Assessment: patient notes leg pain and warmth are improving and she is feeling better. hasn't had a bowel movement in the last couple of days but no other complaints. she is pleased with her improvement Objective Exam General Appearance: no apparent distress, obese Wound Assessment: Skin/Wound Assessment Wound/Incision Assessment Start: 11/16/20 16:00 Text: Status: Active Freq: Q6H Protocol: Document 11/19/20 07:55 RN (Rec: 11/19/20 08:01 RN [id number]) Wound/Incision Assessment Left Lower Posterior Calf Wound Assessment Shift Assessment Wound Type scabbed area Wound Stage Non Pressure Wound Drainage Amount None Drainage Odor None/Absent General Appearance Open to air Comment barrier cream Right Lower Posterior Calf Wound Assessment Shift Assessment Wound Type cellulitis Drainage Amount None Drainage Description Serous Drainage Odor None/Absent General Appearance Open to air Surrounding Tissue [place],Edematous Comment barrier cream Respiratory Exam: normal breath sounds, lungs clear, No respiratory distress Cardiovascular Exam: regular rate/rhythm, normal heart sounds Gastrointestinal/Abdomen Exam: soft, No tenderness, No mass Extremity Exam: swelling (improved warmth and swelling to RLE/calf, tenderness much improved) OBJECTIVE DATA Vital Signs: Vital Signs - 24 hr Temp Pulse Resp BP Pulse Ox 11/19/20 07:32 97.9 F 83 16 113/53 95 11/19/20 04:00 97.8 F 88 18 152/68 93 L 11/18/20 23:31 97.1 F 91 H 18 164/63 94 L 11/18/20 20:00 97.7 F 66 18 105/68 95 11/18/20 16:00 97.9 F 65 16 106/46 97 11/18/20 11:24 98.5 F 73 16 125/58 95 Pain Assessment - Last Documented Pain Intensity 2 Pain Scale Used 0-10 Pain Scale Intake and Output: Intake & Output 11/16/20 11/17/20 11/18/20 11/19/20 11:59 11:59 11:59 11:59 Intake Total 2234 3239 1926 Output Total 2300 2550 1050 Balance -66 689 876 Weight 124.738 kg 124.1 kg Lab Results: Lab Results-Last 24 Hours 04/18/21 04/20/21 04/20/21 Range/Units 10:40 10:20 11:20 POC Glucometer 200 H (74 to 106) mg/dL C-Reactive Prot, Quant 11 H (0-10) mg/L Vancomycin Trough 15.70 (10-20) ug/mL 11/18/20 11/18/20 11/19/20 Range/Units 16:18 23:37 07:21 POC Glucometer 218 H 154 H 102 (74 to 106) mg/dL C-Reactive Prot, Quant (0-10) mg/L Vancomycin Trough (10-20) ug/mL Radiology Exams: Radiology Procedures Category Date Time Status VENOUS UNILAT/LIMITED EXTREMIT [US] Routine Exams 11/17/20 10:18 Completed Multi-Disciplinary Progress Notes: Multi-Disciplinary Progress Notes 11/18/20 13:17 Case Management Note by Mary Chapman REVIEWED CHART- NO NEW NEEDS IDENTIFIED FOR DC AT THIS TIME- WILL CONTINUE TO FOLLOW Initialized on 11/18/20 13:17 - END OF NOTE Assessment/Plan (1) Cellulitis and abscess of right leg Current Visit: Yes Status: Acute Assessment & Plan: on vanc/levaquin, wound culture from 11/16 still only with prelim gram negative ID pending Code(s): L03.115 - CELLULITIS OF RIGHT LOWER LIMB; L02.415 - CUTANEOUS ABSCESS OF RIGHT LOWER LIMB (2) Diabetes mellitus Current Visit: Yes Status: Acute Qualifiers: Diabetes mellitus type: type 2 Diabetes mellitus retirement insulin use: without retirement use Diabetes mellitus complication status: with skin complications Diabetes mellitus complication detail: with other skin complication Qualified Code(s): E11.628 - Type 2 diabetes mellitus with other skin complications Code(s): E11.9 - TYPE 2 DIABETES MELLITUS WITHOUT COMPLICATIONS (3) Constipation Current Visit: Yes Status: Acute Assessment & Plan: add dulcolax Code(s): K59.00 - CONSTIPATION, UNSPECIFIED
[2020-11-19] MEDS: Cozaar 50 MG PO SCH (09:48)
[2020-11-19] MEDS: AMARYL 4 MG PO SCH (09:48)
[2020-11-19] MEDS: ECOTRIN 81 MG PO SCH (09:48)
[2020-11-19] MEDS: PLAVIX 75 MG Tablet PO SCH (09:48)
[2020-11-19] MEDS: COREG 12.5 MG PO SCH ×2 (09:48→23:01)
[2020-11-19] MEDS: ZOCOR 20MG PO SCH (09:48)
[2020-11-19] MEDS: Levofloxacin 500MG/100ML D5W 500 MG/100 ML BAG IV SCH (09:48)
[2020-11-19] MEDS: Klor Con 10 MEQ PO SCH ×2 (09:48→23:01)
[2020-11-19] MEDS: Lasix 40 MG PO SCH ×2 (09:48→17:02)
[2020-11-19] MEDS: VANCOMYCIN 1.25 GM/250 ML BAG 1.25 GM/250 ML PIGGYBACK IV SCH (11:43)
[2020-11-19] MEDS: Lantus Insulin SQ SCH (23:02)
[2020-11-20] MEDS: Sodium Chloride 0.9% 1000 ML 1,000 ML IV SCH (02:27)
[2020-11-20 05:45] LABS: Absolute Neutrophil Ct (ANC) 3.24 (1.4-6.9); BASOPHIL % 0.2 % (0.0-0.4); Basophil (Absolute #) 0.01 (0-0.4); Eosinophil % 1.9 % (0.00-5.0); Hemoglobin 11.1 gm/dl (12.0-16.0); Lymphocyte (Absolute #) 1.35 (1.0-4.6); Mean Cell Volume 98.6 fl (78-100); Mean Corpuscular Hemoglobin 32.2 pg (26-32); Mean Corpuscular Hgb Concent. 32.6 g/dl (32-36); Mean Platelet Volume 8.8 fl (7.5-11.0); Neutrophil % 59.9 % (36.0-66.0); Platelet Count 219 K/mm3 (150-450); Red Blood Count 3.45 M/mm3 (4.1-5.4); Red Cell Distribution Width 14.4 % (11.5-14.0); White Blood Count 5.4 K/mm3 (4.0-10.5)
[2020-11-20 06:03] LABS: ANION GAP 9.9 MEQ/L (5-15); BLOOD UREA NITROGEN 14 mg/dL (7-17); CHLORIDE 104 mmol/L (98-107); Calcium 8.8 mg/dL (8.4-10.2); Carbon Dioxide 27 mmol/L (22-30); EST GLOMERULAR FILTRATION RATE > 60.0 ML/MIN; Glucose 107 mg/dL (74-106); Potassium 3.5 mmol/L (3.5-5.1); SODIUM 138 mmol/L (137-145)
[2020-11-20] MEDS: HUMALOG SQ SCH ×2 (07:43→12:00)
[2020-11-20] MEDS: NORCO 5/325 MG PO PRN ×2 (07:52→11:57)
--- NOTE | 2020-11-20 08:36 | PCM.DS ---
Discharge Summary Date of Admission: 11/16/20 13:56 Admitting Physician: SHELDON CHAMORRO Primary Care Provider: JL DAWKINS Allergies Allergies ceftriaxone [From Rocepden] Allergy (Intermediate, Verified 11/16/20 15:07) Hospital Summary - Hospital Course Hospital Course: patient admitted with cellulitis of RLE, calf red, painful and draining. wound culture with 3 bacteria, all sens to levaquin. improving with wrap and abx, no complaints at discharge. patient has vaginal itching and white discharge c/w yeast infection on discharge, will tx with po diflucan x 1 now then repeat after completion of levaquin rx - Vitals & Intake/Output Vital Signs: Vital Signs Temperature 98.2 F 11/20/20 08:00 Pulse Rate 79 11/20/20 08:00 Respiratory Rate 20 11/20/20 08:00 Blood Pressure 155/97 11/20/20 08:00 O2 Sat by Pulse Oximetry 96 11/20/20 08:00 Intake & Output: Intake & Output 11/17/20 11/18/20 11/19/20 11/20/20 11:59 11:59 11:59 11:59 Intake Total 2234 3239 2406 3155 Output Total 2300 2550 1050 Balance -66 689 1356 3155 Weight 124.1 kg - Lab Result Diagrams: 11/20/20 05:30 11/20/20 05:30 Lab Results-Last 24 Hrs: Lab Results-Last 24 Hours 11/19/20 11/19/20 11/19/20 Range/Units 11:55 16:24 21:44 WBC (4.0-10.5) K/mm3 RBC (4.1-5.4) M/mm3 Hgb (12.0-16.0) gm/dl Hct (35-47) % MCV (78-100) fl MCH (26-32) pg MCHC (32-36) g/dl RDW (11.5-14.0) % Plt Count (150-450) K/mm3 MPV (7.5-11.0) fl Gran % (36.0-66.0) % Eos # (Auto) (0-0.5) Absolute Lymphs (auto) (1.0-4.6) Absolute Monos (auto) (0.0-1.3) Lymphocytes % (24.0-44.0) % Monocytes % (0.0-12.0) % Eosinophils % (0.00-5.0) % Basophils % (0.0-0.4) % Absolute Granulocytes (1.4-6.9) Basophils # (0-0.4) Sodium (137-145) mmol/L Potassium (3.5-5.1) mmol/L Chloride (98-107) mmol/L Carbon Dioxide (22-30) mmol/L Anion Gap (5-15) MEQ/L BUN (7-17) mg/dL Creatinine (0.52-1.04) mg/dL Estimated GFR ML/MIN Glucose (74-106) mg/dL POC Glucometer 121 H 97 132 H (74 to 106) mg/dL Calcium (8.4-10.2) mg/dL 11/20/20 11/20/20 Range/Units 05:30 05:30 WBC 5.4 (4.0-10.5) K/mm3 RBC 3.45 L (4.1-5.4) M/mm3 Hgb 11.1 L (12.0-16.0) gm/dl Hct 34.0 L (35-47) % MCV 98.6 (78-100) fl MCH 32.2 H (26-32) pg MCHC 32.6 (32-36) g/dl RDW 14.4 H (11.5-14.0) % Plt Count 219 (150-450) K/mm3 MPV 8.8 (7.5-11.0) fl Gran % 59.9 (36.0-66.0) % Eos # (Auto) 0.10 (0-0.5) Absolute Lymphs (auto) 1.35 (1.0-4.6) Absolute Monos (auto) 0.70 (0.0-1.3) Lymphocytes % 25.0 (24.0-44.0) % Monocytes % 13.0 H (0.0-12.0) % Eosinophils % 1.9 (0.00-5.0) % Basophils % 0.2 (0.0-0.4) % Absolute Granulocytes 3.24 (1.4-6.9) Basophils # 0.01 (0-0.4) Sodium 138 (137-145) mmol/L Potassium 3.5 (3.5-5.1) mmol/L Chloride 104 (98-107) mmol/L Carbon Dioxide 27 (22-30) mmol/L Anion Gap 9.9 (5-15) MEQ/L BUN 14 (7-17) mg/dL Creatinine 0.70 (0.52-1.04) mg/dL Estimated GFR > 60.0 ML/MIN Glucose 107 H (74-106) mg/dL POC Glucometer (74 to 106) mg/dL Calcium 8.8 (8.4-10.2) mg/dL Micro Results-Entire Visit: Microbiology 11/16/20 10:35 Wound Culture - Final Leg - Right Lower Pseudomonas Aeruginosa Klebsiella Oxytoca Streptococcus Agalactiae 11/16/20 10:45 Blood Culture - Preliminary Blood NO GROWTH TO DATE 11/16/20 10:40 Blood Culture - Preliminary Blood NO GROWTH TO DATE Accuchecks Date 11/20/20 Date 11/19/20 Date 11/19/20 Date 11/19/20 Time 16:41 Time 12:03 - Procedures and Test Procedures and Tests throughout Hospitalization: Therapy Orders & Screens 11/18/20 08:34 PT Eval & Treat (MD Order) ONCE Reason for Eval:: cellulitis with draining lesions Diagnosis: cellulitis Discharge Exam General Appearance: no apparent distress, obese Neurologic Exam: alert, oriented x 3 Respiratory Exam: normal breath sounds, lungs clear, No respiratory distress Cardiovascular Exam: regular rate/rhythm, normal heart sounds Gastrointestinal/Abdomen Exam: soft, No tenderness, No mass Extremity Exam: swelling (improved swelling and redness, warmth dissipating to RLE/posterior calf) Wound Assessment: Skin/Wound Assessment Wound/Incision Assessment Start: 11/16/20 16:00 Text: Status: Active Freq: Q6H Protocol: Document 11/20/20 02:00 LB (Rec: 11/20/20 04:13 LB [id number]) Wound/Incision Assessment Left Lower Posterior Calf Wound Assessment Shift Assessment Wound Type scabbed area Wound Stage Non Pressure Wound Dressing Status Dry & Intact Drainage Amount None Comment dressing by PT, CDI Right Lower Posterior Calf Wound Assessment Shift Assessment Wound Type cellulitis Dressing Status Dry & Intact Surrounding Tissue Edematous Comment dressing by PT, CDI Wound Photo Photo Taken No Final Diagnosis/Problem List - Final Discharge Diagnosis/Problem (1) Cellulitis and abscess of right leg Current Visit: Yes Status: Acute Assessment & Plan: home on levaquin based on wound culture Code(s): L03.115 - CELLULITIS OF RIGHT LOWER LIMB; L02.415 - CUTANEOUS ABSCESS OF RIGHT LOWER LIMB (2) Diabetes mellitus Current Visit: Yes Status: Acute Code(s): E11.9 - TYPE 2 DIABETES MELLITUS WITHOUT COMPLICATIONS (3) Constipation Current Visit: Yes Status: Acute Code(s): K59.00 - CONSTIPATION, UNSPECIFIED (4) Krista vaginitis Current Visit: Yes Status: Acute Assessment & Plan: diflucan 150mg po x 1 then repeat after completion of levaquin in 5 days Code(s): B37.3 - CANDIDIASIS OF VULVA AND VAGINA - Discharge Disposition: Home, Self-Care Condition: Stable Prescriptions: New Fluconazole [Diflucan ] 150 mg PO DAILY #1 tablet Levofloxacin [Levaquin] 500 mg PO DAILY #5 tablet Continue Aspirin 81 mg PO DAILY Rosuvastatin Calcium 20 mg PO DAILY Glimepiride 4 mg [Amaryl 4 mg] 4 mg PO DAILY Carvedilol 12.5 mg [Coreg 12.5 mg] 12.5 mg PO BID Diclofenac Sodium 75 mg PO DAILY Insulin Glargine [Lantus Insulin] 32 units SQ DAILY Insulin Aspart [Novolog] 10 - 20 unit SQ AC Potassium Chloride 10 Meq Tab* [Klor Con 10 MEQ] 20 meq PO BID Losartan Potassium 50 mg [Cozaar 50 MG] 50 mg PO DAILY Clopidogrel Bisulfate 75 mg [PLAVIX 75 MG Tablet] 75 mg PO DAILY Furosemide 40 mg [Lasix 40 MG] 40 mg PO BID Empagliflozin [Jardiance] 25 mg PO 0600 Follow up with: JL DAWKINS NP [Primary Care Provider] - 1 Week
[2020-11-20] MEDS ORDERED: DIFLUCAN PO ONE (09:00)
[2020-11-20] MEDS ORDERED: PATIENT OWN MEDICATION PO SCH (09:00)
[2020-11-20] MEDS: Cozaar 50 MG PO SCH (09:07)
[2020-11-20] MEDS: Klor Con 10 MEQ PO SCH (09:07)
[2020-11-20] MEDS: ZOCOR 20MG PO SCH (09:07)
[2020-11-20] MEDS: PLAVIX 75 MG Tablet PO SCH (09:07)
[2020-11-20] MEDS: AMARYL 4 MG PO SCH (09:07)
[2020-11-20] MEDS: Levofloxacin 500MG/100ML D5W 500 MG/100 ML BAG IV SCH (09:07)
[2020-11-20] MEDS: Lasix 40 MG PO SCH (09:07)
[2020-11-20] MEDS: ECOTRIN 81 MG PO SCH (09:07)
[2020-11-20] MEDS: COREG 12.5 MG PO SCH (09:07)
[2020-11-20 12:59] VITALS: BP 123/57; PULSE 68; O2SAT 97
== END 2020-11-20 13:50 | disposition home or self-care (01) ==
LOC: ED 09:37 → MED SURG 13:56
PROVIDERS: ADMIT Family Medicine; ATTEND Family Medicine
DX: L03.115 Cellulitis of right lower limb (principal); Z79.01 Long term (current) use of anticoagulants; Z79.899 Other long term (current) drug therapy; E11.9 Type 2 diabetes mellitus without complications; K59.00 Constipation, unspecified; B37.3 Candidiasis of vulva and vagina; E78.00 Pure hypercholesterolemia, unspecified; Z20.828 Contact with and (suspected) exposure to other viral communicable diseases
CPT/HCPCS: 0241U; 29581; 36000; 36415; 80048; 80053; 80202; 82947; 83036; 83605; 84145; 85025; 85652; 86140; 87040; 87070; 87077; 87186; 93971; 97161; 99285; A6457; G0378; J1817; J1956; A9270-GY; J3370